=== PATIENT | male | born 1990 | race Two or more races ===

== ENCOUNTER 2022-11-12 15:10 | Emergency (ER) | payer MEDICAID, OTHER ==
[~2022-11-12] VITALS: Ht 180.3 cm; Wt 108.4 kg
[2022-11-12 18:49] VITALS: BP 135/97; PULSE 125; RESP 16; TEMP 98.3; O2SAT 98
[2022-11-12] MEDS ORDERED: IBUP-1456 PO (20:34)
== END 2022-11-12 20:59 | disposition home or self-care (01) ==
LOC: ER 15:10
DX: S93.401A Sprain of unspecified ligament of right ankle, initial encounter (principal); X58.XXXA Exposure to other specified factors, initial encounter; Y93.89 Activity, other specified; Y92.89 Other specified places as the place of occurrence of the external cause; Y99.8 Other external cause status
CPT/HCPCS: 73610